=== PATIENT | female | born 1965 | race Caucasian/White ===

== ENCOUNTER 2019-09-19 18:37 | Emergency (ER) | payer BC ==
[~2019-09-19] VITALS: Ht 165.1 cm; Wt 68.0 kg
[2019-09-19 18:44] VITALS: BP 130/71
--- NOTE | 2019-09-19 18:44 | NUR ---
WHEEL CHAIR ASSISTED TO BED 11
--- NOTE | 2019-09-19 18:49 | NUR ---
54 Y/O FEMALE C/O RT ANKLE PAIN S/P SLIPPING OFF CURB 15 MIN AGO. 6/10 THROBBING PAIN TO RT ANKLE. NOTICABLE SWELLING TO LATERAL ANKLE. +CMS. PT STATES SHE IS UNSURE IF SHE CAN AMBULATE, WHEELCHAIR ASSISTED TO BED. STATES INCREASED PAIN WITH MOVEMENT. CAP REFILL <2 SEC. TOOK ADVIL X HR AGO FOR HEADACHE. PTS AT BEDSIDE. VSS. MEDHX: DENIES ALLERGIES: ASHELY
--- NOTE | 2019-09-19 19:02 | NUR ---
RADIOLOGY AT BEDSIDE
--- NOTE | 2019-09-19 19:25 | NUR ---
PT C/O RIGTH ANKLE PAIN AFTER ROLLING ANKLE OFF A CURB. PT APPEARS TO BE IN NO DISTRESS AT THIS TIME. PT PMSC INTACT. SLIGHT SWELLING NOTED ON LATERAL SIDE OF RIGHT ANKLE. WAITING FOR X-RAY RESULT.
[2019-09-19 20:00] VITALS: BP 128/74
--- NOTE | 2019-09-19 20:13 | NUR ---
MEDINA MANCERA AT BEDSIDE PLACING JAE WRAP ON RIGHT ANKLE. NURSE VIOLA TEACHING CRUTCH TRAINING FOR PT. DR. HERNANDEZ AT BEDSIDE DC PT.
== END 2019-09-19 20:14 | disposition home or self-care (01) ==
LOC: MED 18:37
DX: S93.491A Sprain of other ligament of right ankle, initial encounter (principal); Z98.890 Other specified postprocedural states; X58.XXXA Exposure to other specified factors, initial encounter; Y93.89 Activity, other specified; Y92.89 Other specified places as the place of occurrence of the external cause; Y99.8 Other external cause status
CPT/HCPCS: 73610; 99283; Q0092